=== PATIENT | male | born 1980 | race Two or more races ===

== ENCOUNTER 2020-08-31 07:12 | Emergency (ER) | payer OTHER ==
[~2020-08-31] VITALS: Ht 175.3 cm; Wt 100.3 kg
[2020-08-31] MEDS ORDERED: DIPHENHYDRAMINE 50 MG/ML, 1ML ONE (07:41)
[2020-08-31] MEDS ORDERED: METOCLOPRAMIDE 5 MG/ML, 2ML ONE (07:41)
[2020-08-31] MEDS ORDERED: KETOROLAC 30 MG/1 ML ONE (07:41)
[2020-08-31 07:50] LABS: BASOPHILS % (AUTO) 0 % (0-1); EOSINOPHILS % (AUTO) 0 % (1-7); LYMPHOCYTES % (AUTO) 25 % (22-44); MEAN CORPUSCULAR HEMOGLOBIN 31.6 pg (27.5-34.5); MEAN CORPUSCULAR HGB CONC 34.7 g/dL (33.2-36.2); MEAN PLATELET VOLUME 7.4 fL (7.4-10.4); MONOCYTES % (AUTO) 8 % (2-9); NEUTROPHILS % (AUTO) 67 % (42-75); PLATELET COUNT 318 x10^3/uL (130-400); RED CELL DISTRIBUTION WIDTH 13.7 % (9.4-14.8)
--- NOTE | 2020-08-31 07:50 | NUR ---
IV started, IVF running wide open without issue, and IV meds given as ordered. model and mold maker completed. Labs drawn by [employer] laborer prior to IV start. Call light in reach with at bedside.
[2020-08-31 07:51] LABS: MD NO
[2020-08-31] MEDS ORDERED: SODIUM CHLORIDE 0.9% 1,000ML IVBOLUS ONE (08:00)
[2020-08-31] MEDS ORDERED: METOCLOPRAMIDE 5 MG/ML, 2ML IVPush ONE (08:00)
[2020-08-31] MEDS ORDERED: KETOROLAC 30 MG/1 ML IVPush ONE (08:00)
[2020-08-31] MEDS ORDERED: DIPHENHYDRAMINE 50 MG/ML, 1ML IVPush ONE (08:00)
[2020-08-31 08:01] LABS: ALANINE AMINOTRANSFERASE 66 U/L (12-78); ANION GAP 6 mmol/L (5-15); CALCIUM 9.2 mg/dL (8.5-10.1); CHLORIDE 109 mmol/L (98-107)
[2020-08-31 08:03] LABS: ALKALINE PHOSPHATASE 119 U/L (45-117); BILIRUBIN,TOTAL 0.4 mg/dL (0.2-1.0); CREATININE 0.95 mg/dL (0.7-1.3); TOTAL PROTEIN 9.1 g/dL (6.4-8.2)
--- NOTE | 2020-08-31 08:14 | NUR ---
Pt back from CT.
--- NOTE | 2020-08-31 08:29 | NUR ---
Labs and CT results reviewed. Still awaiting UA sample for UTOX at this time.
--- NOTE | 2020-08-31 09:05 | NUR ---
Pt able to ambulate to restroom and give UA sample. Sample sent to lab, and pain reassessment reports resolved MISTRY at this time.
[2020-08-31] MEDS ORDERED: METF500T17 PO (09:35)
[2020-08-31 09:44] LABS: AMPHETAMINE SCREEN, URINE Negative (Negative); BARBITURATE SCREEN, URINE Negative (Negative); BENZODIAZEPINE SCREEN, URINE Negative (Negative); CANNABINOID SCREEN, URINE Negative (Negative); COCAINE SCREEN, URINE Negative (Negative); METHADONE SCREEN, URINE Negative (Negative); OPIATE SCREEN, URINE Negative (Negative)
--- NOTE | 2020-08-31 09:45 | NUR ---
Awaiting UTOX results. MISTRY remains resolved and pt aware of wait for lab and reassessment by MD before being able to go home.
--- NOTE | 2020-08-31 09:52 | NUR ---
MD reassessed pt and states he is being d/c'd to home. IV d/c'd at this time with hemostasis within expected timeframe, site benign. Pt removed from bedside monitor and dressing for d/c now.
[2020-08-31 10:15] VITALS: BP 110/72
== END 2020-08-31 10:18 | disposition home or self-care (01) ==
LOC: ED 09:34
DX: G44.219 Episodic tension-type headache, not intractable (principal); J32.1 Chronic frontal sinusitis; J32.0 Chronic maxillary sinusitis; F17.200 Nicotine dependence, unspecified, uncomplicated
CPT/HCPCS: 36415; 70450; 80053; 80307; 85025; 96361; 96374; 96375; 99284; J1200; J1885; J2765; J7030